=== PATIENT | male | born 2000 | race African-American/Black ===

== ENCOUNTER 2024-04-05 14:22 | Outpatient (REF) | payer MEDICAID, SELFPAY ==
[2024-04-05 17:55] LABS: MANUAL DIFF FLAG NO
[2024-04-05 17:58] LABS: Basophils Absolute Auto 0.1 X10*3/uL (0.0-0.2); Basophils Percent Auto 0.6 % (0-2); Eosinophils Absolute Auto 0.3 X10*3/uL (0.0-0.4); Eosinophils Percent Auto 3.7 % (0-4); Hematocrit 44.9 % (42.0-52.0); Hemoglobin 15.3 g/dl (14.0-18.0); Imm Gran Abs Auto 0.02 X10*3/uL (0.00-0.03); Imm Gran Pct Auto 0.2 % (0.0-0.4); Lymphocytes Absolute Auto 1.9 X10*3/uL (1.2-4.9); Lymphocytes Percent Auto 23.6 % (20-40); Mean Corpuscular HGB Conc 34.1 g/dl (31.0-36.0); Mean Corpuscular Hemoglobin 29.9 pg (27.0-33.0); Mean Corpuscular Volume 87.7 fL (80.0-98.0); Mean Platelet Volume 9.4 fL (9.4-12.4); Monocytes Absolute Auto 0.8 X10*3/uL (0.1-1.2); Monocytes Percent Auto 9.1 % (2-11); Neutrophils Absolute Auto 5.2 x10*3/uL (2.0-8.3); Neutrophils Percent Auto 62.8 % (45-73); Platelet Count 264 X10*3/uL (160-400); Red Blood Count 5.12 X10*6/uL (4.60-5.80); Red Cell Distribution Width 12.9 % (11.0-16.0); White Blood Count 8.2 X10*3/uL (4.8-10.8)
[2024-04-05 18:24] LABS: Estimated Average Glucose 111 mg/dL; Hemoglobin A1C 148.9039 umol/L; Hemoglobin A1c % 5.5 % (<6.0); Total Hemoglobin (HGBA1C) 4020.4272 umol/L
[2024-04-05 18:34] LABS: Alanine Aminotransferase 17 U/L (0-40); Albumin Level 4.7 g/dL (3.5-5.0); Alkaline Phosphatase 128 U/L (39-117); Anion Gap 15 (12-20); Aspartate Amino Transferase 37 U/L (5-37); Bilirubin Total 0.4 mg/dL (0.0-1.0); Blood Urea Nitrogen 17 mg/dL (9-16); Carbon Dioxide 26 mmol/L (22-29); Chloride 105 mmol/L (96-108); Cholesterol 116 mg/dL (<200); Estimated Glomerular Filt Rate > 60; Glucose Random 88 mg/dL (60-115); HDL Cholesterol 48 mg/dL (>40); LDL Cholesterol Calculated 56 mg/dL (<100); Potassium 3.5 mmol/L (3.3-5.1); Sodium 142 mmol/L (135-145); Total Protein 8.1 g/dL (6.5-8.0); Triglycerides 62 mg/dL (<150)
[2024-04-05 18:40] LABS: TSH reflex Free T4 6.04 uIU/mL (0.32-4.0)
[2024-04-05 19:12] LABS: Free T4 (Free Thyroxine) 0.83 ng/dL (0.71-1.85)
== END 2024-04-05 14:23 | disposition home or self-care (01) ==
LOC: HO.CHCLDS 14:22
PROVIDERS: Visit Provider Registered Nurse
DX: Z00.00 Encounter for general adult medical examination without abnormal findings (principal)
CPT/HCPCS: 36415; 80053; 80061; 83036; 84439; 84443; 85025

== ENCOUNTER 2024-05-01 14:29 | Outpatient (REF) | payer MEDICAID, SELFPAY ==
[2024-05-01 17:49] LABS: Alanine Aminotransferase 16 U/L (0-40); Albumin Level 4.5 g/dL (3.5-5.0); Alkaline Phosphatase 121 U/L (39-117); Aspartate Amino Transferase 30 U/L (5-37); Bilirubin Direct 0.2 mg/dL (0.0-0.5); Bilirubin Total 0.5 mg/dL (0.0-1.0); Total Protein 7.6 g/dL (6.5-8.0)
[2024-05-01 18:04] LABS: TSH reflex Free T4 4.81 uIU/mL (0.32-4.0)
[2024-05-01 18:46] LABS: Free T4 (Free Thyroxine) 0.94 ng/dL (0.71-1.85)
== END 2024-05-01 14:30 | disposition home or self-care (01) ==
LOC: HO.CHCLDS 14:29
PROVIDERS: Visit Provider Registered Nurse
DX: R74.8 Abnormal levels of other serum enzymes (principal); R79.89 Other specified abnormal findings of blood chemistry
CPT/HCPCS: 36415; 80076; 84439; 84443

== ENCOUNTER 2025-03-03 13:40 | Outpatient (REF) | payer MEDICAID, SELFPAY ==
--- OUTSIDE RECORDS SUMMARY | 2025-03-03 13:15 | XMS_ITS | Encounter Summary ---
Author Organization [employer] Address [address] [facility] [address] [place] [address] Care Team Providers Care Nurse Ldr Name Role Phone Donna Linton Primary Care Provider Reason for Visit * Reason Comments Annual Exam Encounter Details Date Type Department Care Team ([facility] st Contact Info) Description 03/03/2025 1:15 PM EDT [facility] [address] [place] [address] Donna Linton FNP [address] [place] [address] Encounter for routine history and physical examination of adult (Primary Dx); Elevated TSH; Mild persistent asthma without complication Social History Tobacco Use Types Packs/Day Years Used Date Smoking Tobacco: Never Passive Smoke Exposure: Never Smokeless Tobacco: Never Alcohol Use Standard Drinks/Week Comments Never 0 (1 standard drink = 0.6 oz pur e alcohol) Depression Answer Date Recorded Patient Health Questionnaire-9 Score 5 03/03/2025 Patient Health Questionnaire-9 Score 5 03/03/2025 Last PHQ-9: Questionnaire Data Not on file 0 03/03/2025 Housing Stability Answer Date Recorded What is your housing situation today? I have mack [place] 03/03/[address] you li ve. Do you have problems with any of the following? None of the above 03/03/2025 Food Insecurity Answer Date Recorded Within the past 12 months, y ou worried that your food would run out before you got money to buy more: Never True 03/03/2025 Within the past 12 months,th e food you bought just didn't last and you didn't have enough money to get more: Never True Transportation Answer Date Recorded In the past 12 months, has l ack of transportation kept you from medical appts, meetings, work or from getting things needed for daily living? No 03/03/2025 Utilities Answer Date Recorded In the past 12 months, has t he electric, gas, oil or water company threatened to shut off services in your home? No 03/03/2025 Depression Answer Date Recorded Patient Health Questionnaire-2 Score 1 03/03/2025 Internet Access Answer Date Recorded Internet Access Q1 Yes 03/03/2025 Internet Access Q2 Not on file 03/03/2025 Sex and Gender Information Value Date Recorded Sex Assigned at Male 04/04/2022 10:17 AM EDT Legal Sex Male 10:17 AM EDT Gender Identity Male 04/04/2022 10:17 AM EDT Sexual Orientation Straight 04/04/2022 10 :17 AM EDT documented as of this encounter Last Filed Vital Signs Vital Sign Reading Time Taken Comments Blood Pressure 146/82 03/03/2025 1:04 PM EDT Pulse 76 03/03/2025 1:04 PM EDT Temperature 36.6 C (97.8 F) 03/03/2025 1:04 PM EDT Respiratory Rate 14 03/03/2025 1:04 PM EDT Oxygen Saturation 99% 03/03/2025 1:04 PM EDT Inhaled Oxygen Concentration - - Weight 65.3 kg (144 lb) 03/03/2025 1:04 PM EDT Height 176.2 cm (5' 9.38 ) 03/03/2025 1:04 PM ED T Body Mass Index 21.03 03/03/2025 1:04 PM EDT documented in this encounter Functional Status * Over the past 2 weeks, how often have you been bothered by any of the following problems? Question Answer Date of Assessment Author Patient Health Questionnaire -2 Score 1 03/03/2025 1:37 PM EDT Alexis Alfaro MA * Little interest or pleasure in doing things Answer Date of Assessment Author Several days 03/03/2025 1:37 PM EDT Malaika Khan MA * Feeling down, depressed, or hopeless Answer Date of Assessment Author Not at all 03/03/2025 1:37 PM EDT Malaika Khan MA * Trouble falling or staying asleep, or sleeping too much Answer Date of Assessment Author More than half the days 03/03/2025 1:37 PM EDT Malaika Kam MA * Feeling tired or having little energy Answer Date of Assessment Author Several days 03/03/2025 1:37 PM EDT Malaika Khan MA * Poor appetite or overeating Answer Date of Assessment Author Several days 03/03/2025 1:37 PM EDT Malaika Khan MA * Feeling bad about yourself - or that you are a failure or have let yourself or your family down Answer Date of Assessment Author Not at all 03/03/2025 1:37 PM EDT Malaika Khan MA * Trouble concentrating on things, such as reading the newspaper or watching television Answer Date of Assessment Author Not at all 03/03/2025 1:37 PM EDT Malaika Khan MA * Moving or speaking so slowly that other people could have noticed? Or the opposite - being so fidgety or restless that you have been moving around a lot more than usual. Answer Date of Assessment Author Not at all 03/03/2025 1:37 PM EDT Malaika Khan MA * Thoughts that you would be better off or hurting yourself in some way Answer Date of Assessment Author Not at all 03/03/2025 1:37 PM EDT Malaika Khan MA * Patient Health Questionnaire-9 Score Answer Date of Assessment Author 5 03/03/2025 1:37 PM EDT Malaika Khan MA * How difficult have these problems made it for you to do your work, take care of things at home, or get along with other people? Answer Date of Assessment Author Not difficult at all 03/03/2025 1:37 PM EDT Malaika Coley MA documented as of this encounter Plan of Treatment Scheduled Orders Name Type Priority Associated Diagnoses Orde r Schedule Comprehensive Metabolic Panel Lab Routine Encounter for routine history and physical examination of adult Expected: 03/03/2025 (Approximate), Expires: 03/03/2026 Lipid Panel, Standard Lab Routine Encounter for routine history and physical examination of adult Expected: 03/03/2025 (Approximate), Expires: 03/03/2026 TSH W/Reflex to FT4 Lab Routine Encounter for routine history and physical examination of adult Expected: 03/03/2025 (Approximate), Expires: 03/03/2026 Thyroid Peroxidase Antibodies Lab Routine Encounter for routine history and physical examination of adult Expected: 03/03/2025 (Approximate), Expires: 03/03/2026 documented as of this encounter Visit Diagnoses Diagnosis Encounter for routine history and physical examination of adult- Primary Elevated TSH Other abnormal blood chemistry Mild persistent asthma without complication documented in this encounter Additional Health Concerns Assessment Noted Time PHQ-9 Depression Total Score: 5 03/03/20 25 1:37 PM EDT documented as of this encounter Care Teams Nurse Ldr Relationship Specialty Start Date End Date Donna Linton FNP [address] [place] [phone] PCP - General Family Medicine 01/27/22 documented as of this encounter
--- OUTSIDE RECORDS SUMMARY | 2025-03-03 15:16 | XMS_ITS | Encounter Summary ---
Author Organization [employer] Address [address] [facility] [address] [place] [address] Care Team Providers Care Nurse Advisor Name Role Phone Donna Linton Primary Care Provider [phone] Reason for Visit * Reason Onset Date Comments Chart Prep 02/28/2025 Encounter Details Date Type Department Care Team ([facility] Contact Info) Description 02/28/2025 Telephone [facility] MED [facility] PEDS [address] [place] [address] Donna Linton FNP [address] [place] [address] Chart Prep Social History Tobacco Use Types Packs/Day Years Used Date Smoking Tobacco: Never Passive Smoke Exposure: Never Smokeless Tobacco: Never Alcohol Use Standard Drinks/Week Comments Never 0 (1 standard drink = 0.6 oz pur e alcohol) Depression Answer Date Recorded Patient Health Questionnaire-9 Score 4 01/01/2024 Patient Health Questionnaire-9 Score 4 01/01/2024 Last PHQ-9: Questionnaire Data Not on file 0 01/01/2024 Housing Stability Answer Date Recorded What is your housing situation today? I have mack [place] 04/10/[address] you li ve. Do you have problems with any of the following? None of the above 04/10/2023 Food Insecurity Answer Date Recorded Within the past 12 months, y ou worried that your food would run out before you got money to buy more: Never True 04/10/2023 Within the past 12 months,th e food you bought just didn't last and you didn't have enough money to get more: Never True 11/2022 Transportation Answer Date Recorded In the past 12 months, has l ack of transportation kept you from medical appts, meetings, work or from getting things needed for daily living? No 04/10/2023 Utilities Answer Date Recorded In the past 12 months, has t he electric, gas, oil or water company threatened to shut off services in your home? No 04/10/2023 Depression Answer Date Recorded Patient Health Questionnaire-2 Score 1 01/01/2024 Sex and Gender Information Value Date Recorded Sex Assigned at Male 04/04/2022 10:17 AM EDT Legal Sex Male 10:17 AM EDT Gender Identity Male 04/04/2022 10:17 AM EDT Sexual Orientation Straight 04/04/2022 10 :17 AM EDT documented as of this encounter Miscellaneous Notes * Telephone Encounter - Liana Adkins MA - 02/28/2025 1:29 PM EDT Chart Prep Labs: not done Images: not applicable Referrals: not applicable Vaccines due: Covid, Flu, and PCV20 Screenings: STI screening and PISQ Overdue care gaps: SBIRT, SDOH, PHQ-9, Disability screen, and Tobacco documented in this encounter Plan of Treatment Not on file documented as of this encounter Visit Diagnoses Not on filedocumented in this encounter Additional Health Concerns Assessment Noted Time PHQ-9 Depression Total Score: 4 01/01/20 24 10:46 AM EDT documented as of this encounter Care Teams Nurse Advisor Relationship Specialty Start Date End Date Donna Linton FNP [address] [place] [id number] PCP - General Family Medicine 01/27/22 documented as of this encounter
--- OUTSIDE RECORDS SUMMARY | 2025-03-03 15:16 | XMS_ITS | Clinical Summary ---
Author Organization [employer] Address [address] [facility] 7t [place] [address] Care Team Providers Care [employer] Name Role Phone Donna Linton TIFFANIE Primary Care Provider [phone] Allergies No known active allergies Medications carbamide peroxide (Debrox) 6.5 % otic solution Administer 5-10 drops into affected ear(s) 2 times daily for 4 days. 30 mL 5 03/07/20 25 Active clotrimazole (Lotrimin) 1 % cream Apply topically 2 times daily for 28 days. (Between toes) 30 g 2 5 03/31/20 25 Active Sodium Fluoride 1.1 % creamIndicatio ns:Dental caries [place] teeth for 2 minutes, morning and night. Spit, do not rinse. Do not eat or drink anything for 30 minutes following use. 112 g 3 4 03/03/20 25 Discontinu ed(Therapy completed) Active Problems Problem Noted Date Diagnosed Date Elevated TSH 05/13/2024 Assessment & Plan (05/13/2024 3:32 PM EST): - Elevated TSH on initial and repeat in 2023 with normal T4 - Consider subclinical hypothyroid, although no known family history of thyroid disorder. Fatigue from management trainer work, but otherwise denies any symptoms of hypothyroid - Plan: check TSH w/ TPO antibodies in 6 months (approx November 2024) Healthcare maintenance 06/24/2023 Overview (01/02/2024): Last PE: 01/01/24 Dental: referral to [facility] dental on 01/01/24 Optometry: following with [facility] Eye Care - last consult September 2023 Idiopathic scoliosis 05/30/2018 Mild persistent asthma without complication 01/2016 Assessment & Plan (06/24/2023 6:01 PM EST): Continues with albuterol PRN, although hasn't needed to use in years Well controlled / possible resolved Assessment & Plan (11/25/2022 5:24 PM EDT): Continues with albuterol PRN, although hasn't needed to use in years Pes planus 03/12/2012 Resolved Problems Problem Noted Date Diagnosed Date Resolved Date 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/25/2022 Encounters Date Type Department Care Team Description 03/03/2025 1:15 PM EDT Office Visit [facility]EDS [address] [place] [address] Donna Linton FNP Encounter for routine history and physical examination of adult (Primary Dx); Elevated TSH; Mild persistent asthma without complication 03/03/2025 Travel 02/28/2025 Telephone [facility] [address] [place] [address] Donna Linton FNP Chart Prep 02/24/2025 Patient Outreach [facility] MEDICINE [address] [place], [place] [phone] Donna Linton FNP Pre-visit Planning (Pre visit planning LVM ) 01/17/2025 2:00 PM EDT Office Visit [facility] OPTOMETRY [address] [place], [place] [phone] Mook, Dorothy, OD Lattice degeneration of peripheral retina, left (Primary Dx); White without pressure of peripheral retina of both eyes; Myopia of both eyes 01/17/2025 Travel from Last 3 Months Immunizations Immunization Administration Dates Next Due DTaP 12/30/2004, 2,06/08/2001,03/30,01/26/2001 HPV, Quadrivalent 12/19/2013,02/15/2013,03/12/20 12 Hep A, ped/adol, 2 dose 06/26/2013,05/24/2010 Hep B, Adolescent or Pediatric 06/08/2001,2000,2000 Hib (HbOC) 02/22/2002, 2,03/30/2001,01/26 IPV 12/30/2004, 2,03/30/2001,01/26 Influenza, IIV3, injectable 06/30/2008,0 02/26/2007,05/22/2006,04/08 Influenza, Split (incl. kyler fied surface antigen) 02/15/2013,03/12/2012 MMR 12/30/2004,11/23/2001 Meningococcal MCV4P [id number]-135 05/18/2017,02/16/20 13 Pneumococcal Conjugate PCV 7 06/08/2001,03/30/20,01/26/2001 Tdap 06/23/2023,02/15/2013 Varicella 06/30/2008,02/22/2002 Family History Medical History Relation Name Comments Hearing loss Father Scoliosis Father Colon cancer Maternal Grandfather Hypertension Maternal Grandfather Diabetes Mother's Sister Relation Name Status Comments Father Maternal Grandfather Mother's Sister Social History Tobacco Use Types Packs/Day Years Used Date Smoking Tobacco: Never Passive Smoke Exposure: Never Smokeless Tobacco: Never Tobacco Cessation:Counseling Given: Not Answered Alcohol Use Standard Drinks/Week Comments Never 0 [...] Orientation Straight 04/04/2022 10 :17 AM EDT Last Filed Vital Signs Vital Sign Reading [...] Mass Index 21.03 03/03/2025 1:04 PM EDT Plan of Treatment Health Maintenance Due Date Last Done Comments HIV Screening 2000 Family Planning (PISQ) 11/22/2015 Hepatitis C Screening 2018 Pneumococcal Vaccine: Pediatrics (0 to 5 Years) and At-Risk Patients (6 to 49) Years (1 of 2 - PCV) 11/22/2019 06/08/2001, 03/30/2001, 01/26/2001 COVID-19 Vaccine (3 - season) 2025 07/19/2021, 06/28/2021 Influenza Vaccine (#1) 2025 3, 03/12/2012, 06/30/2008, Additional history exists Dental X-Ray: Bitewings 04/06/2025 04/05/20 24, 05/01/2017, 11/22/2016, Additional history exists Dental Oral Exam 04/07/2025 10/04/2024, 06/2023, 05/07/2018, Additional history exists Dental Prophylaxis 04/07/2025 10/04/2024, 1 06/05/2023, 05/07/2018, Additional history exists Tobacco Screening 02/09/2026 02/09/2025 Alcohol/Substance Use Screening 03/03/2026 03/03/2025 Depression Screening 03/03/2026 03/03/2025, 03/03/20 25 Disability Screening 03/03/2026 03/03/2025 SDOH Screening 03/03/2026 03/03/2025 Dental X-Ray: Full Mouth 04/06/2027 024, 03/30/2018, 08/23/2010 DTaP/Tdap/Td Vaccines (8 - Td or Tdap) 06/23/2033 06/23/2023, 02/15/2013, 12/30/2004, Additional history exists Zoster Vaccines (1 of 2) 2050 RSV Patients and Patients Aged 60 years or older (1 - 1-dose 75+ series) 11/22/2075 Hepatitis B Vaccines Completed 06/08/2001, 2000, 2000 HIB Vaccines Completed 02/22/2002, 09/2001, 03/30/2001, Additional history exists IPV Vaccines Completed 12/30/2004, 09/03, 03/30/2001, Additional history exists Hepatitis A Vaccines Completed 06/26/2013, 05/24/20 10 HPV Vaccines Completed 12/19/2013, 02/03, 03/12/2012 Meningococcal Vaccine Completed 05/18/2017, 013 Meningococcal B Vaccine Aged Out No l onger eligible based on patient's age to complete this topic RSV under 20 months Aged Out No longe r eligible based on patient's age to complete this topic Rotavirus Vaccines Aged Out No longer eligible based on patient's age to complete this topic Procedures Procedure Name Priority Date/Time Associated Diagnosis Comments PROPHYLAXIS - ADULT Routine 10/04/2024 1 :00 PM EDT PERIODIC ORAL EVALUATION - ESTABLISHED PATIENT Routine 10/04/2024 1:00 PM EDT INTRAORAL - COMPLETE SERIES OF RADIOGRAPHIC IMAGES Routine 04/05/2024 1:00 PM EDT Dental caries from Last 3 Months or Most Recently Relevant to Health Maintenance Insurance [facility] C3 DENTAL-[facility] MEDICAID STAND ADULT Care Teams [employer] Relationship Specialty Start Date End Date Donna Linton FNP [address] [place] [address] PCP - General Family Medicine 01/27/22
--- OUTSIDE RECORDS SUMMARY | 2025-03-03 15:16 | XMS_ITS | Encounter Summary ---
Author Organization [employer] Address [address] [facility] [address] [place] [address] Care Team Providers Care Emergency Vehicle Operator Name Role Phone Donna Linton TIFFANIE Primary Care Provider [phone] Encounter Details Date Type Department Care Team (Latest Contact Info) Description 03/03/2025 Travel Social History Tobacco Use Types Packs/Day Years [...] AM EDT documented as of this encounter Functional Status * Over the past 2 weeks, how often have you been bothered by any of the following problems? Question Answer Date of Assessment Author Patient Health Questionnaire -2 Score 1 03/03/2025 1:37 PM EDT Alexis Alfaro MA * Little interest or pleasure in doing things Answer Date of Assessment Author Several days 03/03/2025 1:37 PM EDT [place] Malaika oseguera [place] * Feeling down, depressed, or hopeless Answer Date of Assessment Author Not at all 03/03/2025 1:37 PM EDT [place] Malaika oseguera MA * Trouble falling or staying asleep, or sleeping too much Answer Date of Assessment Author More than half the days 03/03/2025 1:37 PM EDT Nichole-Malaika Caballero MA * Feeling tired or having little energy Answer Date of Assessment Author Several days 03/03/2025 1:37 PM EDT [place] Malaika oseguera MA * Poor appetite or overeating Answer Date of Assessment Author Several days 03/03/2025 1:37 PM EDT [place] Malaika oseguera MA * Feeling bad about yourself - or that you are a failure or have let yourself or your family down Answer Date of Assessment Author Not at all 03/03/2025 1:37 PM EDT [place] Mlaaika oseguera MA * Trouble concentrating on things, such as reading the newspaper or watching television Answer Date of Assessment Author Not at all 03/03/2025 1:37 PM EDT [place] Malaika oseguera MA * Moving or speaking so slowly [...] as of this encounter Plan of Treatment Not on file documented as of this encounter Visit Diagnoses Not on filedocumented in this encounter Additional Health Concerns Assessment Noted Time PHQ-9 Depression Total Score: 5 03/03/20 25 1:37 PM EDT documented as of this encounter Care Teams Emergency Vehicle Operator Relationship Specialty Start Date End Date Donna Linton FNP [address] [place] [id number] PCP - General Family Medicine 01/27/22 documented as of this encounter
[2025-03-03 18:10] LABS: Alanine Aminotransferase 19 U/L (0-40); Albumin Level 4.8 g/dL (3.5-5.0); Alkaline Phosphatase 99 U/L (39-117); Anion Gap 13 (12-20); Aspartate Amino Transferase 32 U/L (5-37); Blood Urea Nitrogen 19 mg/dL (9-16); Calcium 9.5 mg/dL (8.4-10.2); Carbon Dioxide 29 mmol/L (22-29); Chloride 106 mmol/L (96-108); Cholesterol 121 mg/dL (<200); Estimated Glomerular Filt Rate > 60; HDL Cholesterol 45 mg/dL (>40); Potassium 4.0 mmol/L (3.3-5.1); Sodium 144 mmol/L (135-145); Total Protein 7.6 g/dL (6.5-8.0); Triglycerides 53 mg/dL (<150)
[2025-03-03 19:26] LABS: Free T4 (Free Thyroxine) 0.90 ng/dL (0.71-1.85)
== END 2025-03-03 13:41 | disposition home or self-care (01) ==
LOC: HO.CHCLDS 13:40
PROVIDERS: Visit Provider Registered Nurse
DX: Z00.00 Encounter for general adult medical examination without abnormal findings (principal)
CPT/HCPCS: 36415; 80053; 80061; 84439; 84443; 86376